=== PATIENT | female | born 1995 | race Caucasian/White ===

== ENCOUNTER 2017-02-01 00:05 | Emergency (ER) | payer BC, MEDICAID ==
--- NOTE | 2017-02-01 00:09 | EDM.PDOCBH ---
ED HPI GENERAL MEDICAL PROBLEM - General Chief Complaint: Behavioral/Psych Stated Complaint: Anxiety Time Seen by Provider: 02/01/17 00:08 Source of Information: Reports: Patient, EMS Notes Reviewed, RN, RN Notes Reviewed History Limitations: Reports: No Limitations - History of Present Illness INITIAL COMMENTS - FREE TEXT/NARRATIVE: Patient is brought to the ED via EMS for an anxiety attack. 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 Patient was diagnosed at age 7 with Anxiety Disorder. She currently takes Citalopram daily. Her PCP is Dr. Polk [facility]. She sees her PCP monthly. Patient states this attack was the worse she has had since diagnosis. 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: Reports: See EMS Report - Related Data Allergies Allergy/AdvReac Type Severity Reaction Status Date / Time No Known Drug Allergies Allergy Other Verified 06/03/16 23:10 Home Meds: Home Meds Citalopram [Celexa] 20 mg PO DAILY 06/03/16 [History] Past Medical History - Past Health History Medical/Surgical History: Denies Medical/Surgical History [employer] History: Reports: , Spontaneous Psychiatric History: Reports: Anxiety, Depression, Emotional Problems, PTSD, Suicide Attempt, Suicidal Ideation Social & Family History - Tobacco Use Smoking Status *Q: Current Every Day Smoker Years of Tobacco use: 7 Packs/Tins Daily: 0.2 Used Tobacco, but Quit: Yes Month Tobacco Last Used: july Second Hand Smoke Exposure: No - Alcohol Use Days Per Week of Alcohol Use: 0 - Recreational Drug Use Recreational Drug Use: No ED ROS GENERAL - Review of Systems Review Of Systems: See Below Constitutional: Denies: Fever, Chills, Weakness Respiratory: Reports: Shortness of Breath. Denies: Cough, Sputum Cardiovascular: Denies: Chest Pain, Palpitations GI/Abdominal: Denies: Abdominal Pain, Nausea, Vomiting Skin: Reports: No Symptoms Neurological: Reports: No Symptoms Psychiatric: Reports: Anxiety ED EXAM, BEHAVIORAL HEALTH - Physical Exam Exam: See Below Exam Limited By: No Limitations General Appearance: Alert, No Apparent Distress Respiratory/Chest: No Respiratory Distress, Lungs Clear, Normal Breath Sounds Cardiovascular: Normal Peripheral Pulses, Regular Rate, Rhythm Neurological: Alert, Normal Cognition, Oriented x 3 Psychiatric: Alert, Normal Affect, Normal Cognition, Normal Mood, Oriented Skin Exam: Warm, Dry, Intact, Normal color, No rash COURSE, BEHAVIORAL HEALTH COMP - Course Orders, Labs, Meds: Active Orders 24 hr Category Date Time Status LORazepam [Ativan] Med 02/01/17 00:21 Once 1 mg PO ONETIME ONE Departure - Departure Time of Disposition: 00:25 Disposition: Home, Self-Care 01 Condition: Good Clinical Impression: Anxiety - Discharge Information Instructions: Panic Attacks Forms: ED Department Discharge Additional Instructions: 1. Stay well hydrated and rest 2. Continue with same medications at home 3. See your Primary in clinic this next week for a recheck 4. You are doing fine. Learn how to control the attacks 5. Call with any questions - Problem List Review Problem List Initiated/Reviewed/Updated: Yes - My Orders Last 24 Hours: My Active Orders 02/01/17 00:21 LORazepam [Ativan] 1 mg PO ONETIME ONE - Assessment/Plan Last 24 Hours: My Active Orders 02/01/17 00:21 LORazepam [Ativan] 1 mg PO ONETIME ONE
[2017-02-01] MEDS ORDERED: LORazepam 1 MG Tab PO ONE (00:21)
[2017-02-01 00:56] VITALS: BP 143/79
== END 2017-02-01 00:39 | disposition home or self-care (01) ==
LOC: VM.ED 00:05
DX: F41.9 Anxiety disorder, unspecified (principal); F32.9 Major depressive disorder, single episode, unspecified; F17.210 Nicotine dependence, cigarettes, uncomplicated; Z79.899 Other long term (current) drug therapy
CPT/HCPCS: 99284; A9270

== ENCOUNTER 2017-02-26 14:28 | Emergency (ER) | payer BC, MEDICAID ==
[2017-02-26 14:50] VITALS: BP 146/90
--- NOTE | 2017-02-26 15:03 | EDM.PDOC ---
ED HPI GENERAL MEDICAL PROBLEM - General Chief Complaint: General Stated Complaint: dental infection Time Seen by Provider: 02/26/17 14:40 Source of Information: Reports: Patient History Limitations: Reports: No Limitations - History of Present Illness INITIAL COMMENTS - FREE TEXT/NARRATIVE: Pt. was started on Amoxicillin and took a total of 3 doses yesterday for a dental infection of her R upper canine. Pt. states that She has a history of dental caries and tooth decay. Pt. was also started on Tylenol #3 yesterday as well. Pt. was concerned that the antibiotic wasn't effective and returned to the dentist today, who started the pt. on clindamycin. Pt. has only take a single dose of the clindamycin and is concerned that she is still experiencing dental pain and facial swelling. She states that she is not experiencing any fever or chills. No neck pain, difficulty swallowing or managing her oral secretions. 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: , 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 Psychiatric History: Reports: Anxiety, Depression, Emotional Problems, PTSD, Suicide Attempt, Suicidal Ideation Social & Family History - Tobacco Use Smoking Status *Q: Current Every Day Smoker Years of Tobacco use: 7 Packs/Tins Daily: 0.2 Used Tobacco, but Quit: Yes Month Tobacco Last Used: july Second Hand Smoke Exposure: No - Alcohol Use Days Per Week of Alcohol Use: 0 - Recreational Drug Use Recreational Drug Use: No ED ROS GENERAL - Review of Systems Review Of Systems: See Below Constitutional: Reports: No Symptoms HEENT: Reports: Dental Pain, Other (mild right sided facial swelling.) Respiratory: Reports: No Symptoms Cardiovascular: Reports: No Symptoms GI/Abdominal: Reports: No Symptoms ED EXAM, GENERAL - Physical Exam Exam: See Below Exam Limited By: No Limitations General Appearance: Alert, No Apparent Distress Throat/Mouth: Other (severe, chronic decay to R upper canine. swelling to buccal mucosa. no cellulitis noted.) Neck: Normal Inspection (No swelling to the hypopharynx.) Respiratory/Chest: No Respiratory Distress, Lungs Clear Cardiovascular: Normal Peripheral Pulses, Regular Rate, Rhythm Skin Exam: Warm, Dry, Intact Course - Vital Signs Last Recorded V/S: Last Vital Signs Temp 36.9 C 02/26/17 14:30 Pulse 76 02/26/17 14:30 Resp 16 02/26/17 14:30 BP 146/90 H 02/26/17 14:30 Pulse Ox Departure - Departure Time of Disposition: 14:52 Disposition: Home, Self-Care 01 Clinical Impression: Dental infection - Discharge Information Instructions: Dental Caries Forms: ED Department Discharge Additional Instructions: Continue with the Clindamycin. It will take several days for this to get better , and will get worse before it does get better. Continue with the Tylenol #3. In addition, take Ibuprofen 800mg every 8 hours. - Assessment/Plan Assessment:: dental infection/caries Plan: Continue with the Clindamycin. It will take several days for this to get better , and will get worse before it does get better. Continue with the Tylenol #3. In addition, take Ibuprofen 800mg every 8 hours.
== END 2017-02-26 15:00 | disposition home or self-care (01) ==
LOC: VM.ED 14:28
DX: K04.7 Periapical abscess without sinus (principal); F17.210 Nicotine dependence, cigarettes, uncomplicated; F32.9 Major depressive disorder, single episode, unspecified; Z79.899 Other long term (current) drug therapy
CPT/HCPCS: 99282

== ENCOUNTER 2018-08-01 23:03 | Emergency (ER) | payer BC, MEDICAID ==
[2018-08-01 23:41] VITALS: BP 144/88
--- NOTE | 2018-08-01 23:56 | EDM.PDOC ---
ED HPI GENERAL MEDICAL PROBLEM - General Chief Complaint: General Stated Complaint: Chest, rib pain, dizziness Time Seen by Provider: 08/01/18 23:14 Source of Information: Reports: Patient, Family, RN, RN Notes Reviewed History Limitations: Reports: No Limitations - History of Present Illness INITIAL COMMENTS - FREE TEXT/NARRATIVE: Patient presents the emergency room at [facility] for the evaluation of chest wall pain. The patient states that her chest wall pain/muscle aches started about 2 days ago. The patient denies any injury or trauma. The patient states she has been coughing a lot over the past week. The patient states she felt dizzy today. The patient denies any shortness of breath. No focal neurological deficits. The patient denies any nausea vomiting or diarrhea. No back pain or shoulder pain. The pain is global in nature over the left and right chest. Otherwise no other concerns. 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 Denies: Shortness of Breath, Cough Cardiovascular: Denies: Chest Pain, Palpitations GI/Abdominal: Denies: Abdominal Pain, Nausea, Vomiting Skin: Reports: No Symptoms Neurological: Reports: No Symptoms ED EXAM, GENERAL - Physical Exam Exam: See Below Exam Limited By: No Limitations General Appearance: Alert, No Apparent Distress Respiratory/Chest: No Respiratory Distress, Lungs Clear, Normal Breath Sounds Cardiovascular: Normal Peripheral Pulses, Regular Rate, Rhythm Peripheral Pulses: 2+: Radial (L), Radial (R) GI/Abdominal: Normal Bowel Sounds, Soft, Non-Tender Neurological: Alert, Oriented Skin Exam: Warm, Dry, Intact, Normal Color Course - Vital Signs Last Recorded V/S: Last Vital Signs Temp 36.1 C 08/01/18 23:05 Pulse 93 08/01/18 23:05 Resp 16 08/01/18 23:05 BP 144/88 H 08/01/18 23:05 Pulse Ox 99 08/01/18 23:05 - Orders/Labs/Meds Orders: Active Orders 24 hr Category Date Time Status EKG 12 Lead [EKG Documentation Completion] [RC] STAT Care 08/01/18 23:24 Active Meds: Medications Discontinued Medications Generic Name Dose Route Start Last Admin Trade Name Clyde PRN Reason Stop Dose Admin Orphenadrine Citrate 60 mg 08/01/18 23:24 08/01/18 23:30 Norflex IM 08/01/18 23:25 60 mg Q12H ONE Administration Departure - Departure Time of Disposition: 23:55 Disposition: Home, Self-Care 01 Condition: Good Clinical Impression: Musculoskeletal pain - Discharge Information *PRESCRIPTION DRUG MONITORING PROGRAM REVIEWED*: Not Applicable *COPY OF PRESCRIPTION DRUG MONITORING REPORT IN PATIENT MIS: Not Applicable Instructions: Muscle Pain, Adult Additional Instructions: Your EKG was normal. Your symptoms are from muscle pain around the rib cage area. Recommend lots of water. Use Tylenol or Advil as needed. See your primary care provider as symptoms warrant. - Problem List Review Problem List Initiated/Reviewed/Updated: Yes - My Orders Last 24 Hours: My Active Orders 08/01/18 23:24 EKG 12 Lead [EKG Documentation Completion] [RC] STAT - Assessment/Plan Last 24 Hours: My Active Orders 08/01/18 23:24 EKG 12 Lead [EKG Documentation Completion] [RC] STAT Assessment:: Musculoskeletal chest pain Plan: EKG obtained. EKG normal. The patient's pain is not cardiac in nature as the pain is reproducible upon palpation. The patient merely has costochondritis or musculoskeletal muscle pain. Patient was given an injection of Norflex. Recommend to stay very well hydrated for the dizziness. The patient may take Tylenol/Advil as needed for pain. Follow-up with primary care provider as symptoms warrant.
== END 2018-08-02 00:04 | disposition home or self-care (01) ==
LOC: VM.ED 23:03
DX: R07.89 Other chest pain (principal); F41.9 Anxiety disorder, unspecified; F32.9 Major depressive disorder, single episode, unspecified
CPT/HCPCS: 93005; 96372; 99284-25; J2360

== ENCOUNTER 2023-03-22 15:34 | Emergency (ER) | payer BC, MEDICAID ==
[2023-03-22 16:11] LABS: BASOPHILS ABSOLUTE AUTO 0.1 x10^3/uL (0.0-0.2); BASOPHILS PERCENT AUTO 0.6 % (0.2-1.2); EOSINOPHILS ABSOLUTE AUTO 0.4 x10^3/uL (0.0-0.5); EOSINOPHILS PERCENT AUTO 4.5 % (0.0-4.0); HEMATOCRIT 40.9 % (33.0-47.0); HEMOGLOBIN 14.3 g/dL (12.0-16.0); IMMATURE GRAN ABSOLUTE AUTO 0.18 x10^3/uL (0.00-0.07); LYMPHOCYTES ABSOLUTE AUTO 2.8 x10^3/uL (1.0-4.8); LYMPHOCYTES PERCENT AUTO 32.3 % (25.0-50.0); MEAN CORPUSCULAR HEMOGLOBIN 29.9 pg (26.0-32.0); MEAN CORPUSCULAR VOLUME 85.6 fL (78.0-93.0); MONOCYTES ABSOLUTE AUTO 0.6 x10^3/uL (0.0-0.8); MONOCYTES PERCENT AUTO 6.6 % (2.0-11.0); NEUTROPHILS ABSOLUTE AUTO 4.6 x10^3/uL (1.8-7.7); NEUTROPHILS PERCENT AUTO 53.9 % (50.0-80.0); PLATELET COUNT,PLT 228 x10^3/uL (130-400); RED BLOOD CELL COUNT 4.78 x10^6/uL (4.00-5.50); WHITE BLOOD CELL COUNT,WBC 8.5 x10^3/uL (4.0-10.0)
[2023-03-22 16:34] LABS: INR 0.9 (0.9-1.1); PTT,PARTIAL THROMBOPLSTIN TIME 28.4 SEC (23.6-33.6)
[2023-03-22 16:34] LABS: APPEARANCE,URINE SLIGHTLY CLOUDY (CLEAR); BILIRUBIN,URINE NEGATIVE (NEGATIVE); COLOR,URINE YELLOW (YELLOW); GLUCOSE,URINE NEGATIVE (NEGATIVE); KETONES,URINE NEGATIVE (NEGATIVE); LEUKOCYTE ESTERASE,URINE SMALL (NEGATIVE); NITRITE,URINE NEGATIVE (NEGATIVE); OCCULT BLOOD,URINE TRACE-INTACT (NEGATIVE); PROTEIN,URINE TRACE mg/dL (NEGATIVE); UROBILINOGEN,URINE 0.2 EU/dL (0.2)
[2023-03-22 16:42] LABS: AMPHETAMINES SCREEN, URINE NEGATIVE (NEGATIVE); BARBITURATE SCREEN,URINE NEGATIVE (NEGATIVE); BENZODIAZEPINES SCREEN,URINE POSITIVE (NEGATIVE); BUPRENORPHINE SCREEN,URINE NEGATIVE (NEGATIVE); COCAINE METABOLITES,URINE NEGATIVE (NEGATIVE); METHADONE SCREEN, URINE NEGATIVE (NEGATIVE); METHAMPHETAMINE SCREEN, URINE NEGATIVE (NEGATIVE); OXYCODONE SCREEN,URINE NEGATIVE (NEGATIVE); PCP SCREEN,URINE NEGATIVE (NEGATIVE); THC SCREEN,URINE 50 NG/ML NEGATIVE (NEGATIVE)
[2023-03-22 16:43] LABS: A/G RATIO 0.95; ALANINE AMINOTRANSFERASE,ALT 55 U/L (14-59); ALBUMIN 3.6 g/dL (3.4-5.0); ALKALINE PHOSPHATASE 82 U/L (46-116); ASPARTATE AMNIOTRANSFERASE,AST 32 U/L (15-37); BILIRUBIN TOTAL 0.3 mg/dL (0.2-1.0); BLOOD UREA NITROGEN,BUN 10 mg/dL (7-18); C-REACTIVE PROTEIN 0.84 mg/dL (<=0.50); CALCIUM 9.4 mg/dL (8.5-10.1); CARBON DIOXIDE,CO2 28 mmol/L (21-32); CHLORIDE,CL 104 mmol/L (98-107); CREATININE 0.8 mg/dL (0.55-1.02); GLUCOSE RANDOM 100 mg/dL (70-99); MAGNESIUM 1.9 mg/dL (1.8-2.4); POTASSIUM,K 3.6 mmol/L (3.5-5.1); PROTEIN TOTAL,TP 7.4 g/dL (6.4-8.2); SODIUM,NA 141 mmol/L (136-145)
[2023-03-22 16:45] VITALS: BP 129/84; PULSE 124
[2023-03-22 16:54] LABS: ANION GAP 12.6 mmol/L (5-15); ESTIMATED GFR 103 mL/min (>=60)
[2023-03-22 17:00] LABS: ACETAMINOPHEN 0 ug/ml (10-30); ETHANOL BLOOD MEDICAL < 3 mg/dL (0-3)
[2023-03-22 17:00] LABS: BACTERIA,URINE FEW /HPF (NOT SEEN); MUCUS,URINE RARE /LPF (NOT SEEN); RBC,URINE 0-5 /HPF (NOT SEEN); SQUAMOUS EPITHELIAL CELLS,UR MODERATE /HPF (NOT SEEN); WBC,URINE 0-5 /HPF (NOT SEEN)
[2023-03-22 17:08] LABS: CORONAVIRUS COVID-19 NAA NEGATIVE (NEGATIVE); INFLUENZA A NAA NEGATIVE (NEGATIVE); INFLUENZA B NAA NEGATIVE (NEGATIVE); RESPIRATORY SYNCYTIAL VIR NAA NEGATIVE (NEGATIVE)
== END 2023-03-22 20:10 ==
LOC: VM.ED 15:34
DX: R45.851 Suicidal ideations (principal); R45.850 Homicidal ideations; F17.210 Nicotine dependence, cigarettes, uncomplicated; Z79.899 Other long term (current) drug therapy; Z20.822 Contact with and (suspected) exposure to COVID-19
CPT/HCPCS: 0241U; 36415; 80053; 80143; 80179; 80305-QW; 80307; 81001; 81025; 82140; 83735; 84443; 84484; 85025; 85610; 85730; 86140; 87086; 93005; 99284; 99285